=== PATIENT | male | born 1975 | race Caucasian/White ===

== ENCOUNTER 2017-09-26 09:38 | Day surgery (SDC) | payer OTHER ==
[2017-09-24 15:27] VITALS: BMI 22.6
[~2017-09-26 09:38] MED LIST: LACTATED RINGERS 1,000 ML IV SCH; LIDOCAINE 1% 20 ML VIAL (10MG/ML) FOR IV START INTRADERMA PRN
[2017-09-26 10:04] VITALS: RESP 16; TEMP 98.8
[2017-09-26] MEDS ORDERED: PROPOFOL 10 MG/ML 20 ML VIAL IV ONE (11:07)
--- NOTE | 2017-09-26 11:30 | P.PCN ---
Date of Procedure: 09/26/17 Procedure(s) Performed: Procedure: Esophagogastroduodenoscopy and biopsy. Preoperative diagnosis: History of Mendez's esophagus. Postoperative diagnosis: Hiatal hernia and Mendez's esophagus with no obvious esophagitis or ulcers. Preparation and sedation: Was provided by anesthesia. Brief clinical history: The patient is a 42-year-old male with history of acid reflux and prior diagnosis of Mendez's esophagus currently maintained on omeprazole, is scheduled for this evaluation for screening for dysplasia. His last endoscopy was in 2013. The patient has no complaints while on medications and does not have any alarm symptoms. Procedure: With the patient on his left lateral decubitus position and after informed consent and adequate sedation, I passed the Olympus-GIF 160 video upper endoscope through the cricopharyngeus down the esophagus. GE junction was around 36 cm from the incisors and the tubular esophagus continued for another 4 cm or so defining a segment of Mendez's esophagus. There was a sliding hiatal hernia measuring around 2 cm then the endoscope was passed into the stomach which was insufflated with air and inspected in detail including the retroflex view in the cardia. Finally, the endoscope was passed through the pylorus into the duodenum. Pyloric channel, duodenal bulb, post bulbar area and descending duodenum appeared within normal limits. The stomach appeared within normal limits as well. The esophagus did not show any obvious erosions, ulcers or strictures. I obtained biopsies from the Mendez's segment then the endoscope was withdrawn. The patient tolerated the procedure well. Plan: The patient was reassured and I discussed with his mother who was with him today. We will continue current management and plan to repeat an upper endoscopy in 2-3 years. He will follow up with you as planned and I will be happy to see in the office if he has any new issues in the meantime.
[2017-09-26 11:51] VITALS: BP 119/73; PULSE 66
== END 2017-09-26 11:54 | disposition home or self-care (01) ==
LOC: ORWHC2ENDO 09:38
DX: K22.70 Barrett's esophagus without dysplasia (principal); K21.9 Gastro-esophageal reflux disease without esophagitis; K44.9 Diaphragmatic hernia without obstruction or gangrene; J45.909 Unspecified asthma, uncomplicated; Z88.0 Allergy status to penicillin; Z79.899 Other long term (current) drug therapy
CPT/HCPCS: 43239; J2704; 88305

== ENCOUNTER → 2018-06-06 | Outpatient (CLI) | payer BC ==
--- NOTE | 2018-06-06 12:17 | US ---
EXAMINATION TYPE: US abdomen limited DATE OF EXAM: 06/06/2018 COMPARISON: NONE CLINICAL HISTORY: R10.9 ABD PAIN. LUQ pain/tenderness for a month, patient unsure if related to lifti ng weights, describes a rolling pain left of epigastric area EXAM MEASUREMENTS: Spleen: 8.8cm Left Kidney: 9.3 x 4.5 x 5.8cm 1. Spleen: appears wnl 2. Left Kidney: appears wnl *scanned area left of epigastric and peristalsing bowel seen. IMPRESSION: In the area the patient's left upper quadrant tenderness there is no suspicious abnormali ty seen. The left kidney and left spleen are unremarkable.
== END | disposition home or self-care (01) ==
LOC: RADUSWWP 10:42
PROVIDERS: ATTEND Internal Medicine
DX: R10.12 Left upper quadrant pain (principal)
CPT/HCPCS: 76705

== ENCOUNTER 2020-03-31 09:18 | Day surgery (SDC) | payer BC ==
[2020-03-31 09:43] VITALS: TEMP 98.9
[2020-03-31] MEDS ORDERED: LACTATED RINGERS 1,000 ML IV ONE (09:43)
[2020-03-31] MEDS ORDERED: LIDOCAINE 1% (10MG/ML) FOR IV START INTRADERMA ONE (09:43)
[2020-03-31] MEDS ORDERED: PROPOFOL 10 MG/ML 20 ML VIAL IV ONE (10:08)
--- NOTE | 2020-03-31 10:46 | P.PCN ---
Date of Procedure: 03/31/20 Description of Procedure: Brief history: Patient is a pleasant 45-year-old male presenting for outpatient esophagogastroduodenoscopy and colonoscopy for history of Mendez's esophagus and altered bowel function/change in bowel function. Patient is seen in the clinic with a history of Mendez's esophagus and last EGD in 2018. Patient is on omeprazole daily. He had been complaining of altered bowel function with abdominal pain and frequent diarrhea including nighttime symptoms. Procedure performed: Esophagogastroduodenoscopy with biopsy Colonoscopy with biopsy Estimated blood loss: Minimal. Preoperative diagnosis: Mendez's esophagus, change in bowel habits/altered bowel function Anesthesia: [facility] [place] Procedure: After informed consent was obtained from the patient was brought into the endoscopy unit and IV sedation was administered by anesthesia under continuous monitoring. Initially upper endoscopy was done. The Olympus GF 190 video endoscope was inserted into the mouth and esophagus intubated without any difficulty and was gradually advanced into the stomach and duodenum and carefully examined. The bulb and second part of the duodenum appeared normal, with biopsies taken to rule out celiac sprue. The scope was then withdrawn into the stomach adequately insufflated with air and upon careful examination the antrum and body, cardia and fundus appeared normal, except for diffuse punctate erythema in the antrum and body suggestive of mild gastritis of. The scope was then withdrawn into the esophagus. The GE junction was located at 39 cm to the incisors, with a 1 cm hiatal hernia. There was 4 cm [place]-colored mucosa consistent with history of Mendez's esophagus with biopsies of the lower esophageal dysphagia the esophagus otherwise appeared regular with no erythema erosions or ulcerations. Rest of the esophagus appeared normal. Patient tolerated the procedure well. At this time the patient continued to remain sedation. Initial digital rectal examination was normal. Olympus CF 190 video colonoscope was then inserted into the rectum and gradually advanced to the cecum without any difficulty. Careful examination was performed as the scope was gradually being withdrawn. The prep was excellent. The cecum, ascending colon, transverse colon, descending colon, sigmoid colon and rectum appeared normal with random biopsies taken of the right and left colon in the setting of altered bowel function. Normal-appearing terminal ileum with biopsies taken. Retroflexion was performed in the rectum and no lesions were noted, Low-grade internal hemorrhoids. Patient tolerated the procedure well. Impression: 1. Mild gastritis. Mendez's esophagus. Biopsies of the duodenum, antrum and body and lower esophagus. 2. Normal-appearing colon from rectum to cecum with normal-appearing terminal ileum, and random biopsies taken of the right colon, left colon and terminal ileum given altered bowel function. Internal hemorrhoids. Recommendations: Findings of this examination were discussed with the patient. Okay to resume diet. Okay to resume medications. Await pathology from biopsies. Continue current medical management. Follow-up in the GI clinic as scheduled.
[2020-03-31 11:07] VITALS: BP 130/86; PULSE 83; RESP 18
== END 2020-03-31 11:38 | disposition home or self-care (01) ==
LOC: ORWHC2ENDO 09:18
PROVIDERS: ATTEND Internal Medicine
DX: D72.820 Lymphocytosis (symptomatic) (principal); K29.50 Unspecified chronic gastritis without bleeding; K22.70 Barrett's esophagus without dysplasia; R19.4 Change in bowel habit; K44.9 Diaphragmatic hernia without obstruction or gangrene; K64.8 Other hemorrhoids; K21.9 Gastro-esophageal reflux disease without esophagitis; J45.909 Unspecified asthma, uncomplicated; Z79.899 Other long term (current) drug therapy; Z88.0 Allergy status to penicillin; Z91.018 Allergy to other foods
CPT/HCPCS: 45380; 43239; J2704; 88305

== ENCOUNTER → 2020-06-03 | Outpatient (CLI) | payer BC ==
--- NOTE | 2020-06-03 13:27 | US ---
EXAMINATION TYPE: US abdomen complete DATE OF EXAM: 06/03/2020 COMPARISON: 06/06/2018 CLINICAL HISTORY: 45-year-old male R10.9 unspecified Abdominal Pain. Generalized pain. TECHNIQUE: Multiple sonographic images of the abdomen are obtained. FINDINGS: EXAM MEASUREMENTS: Liver Length: 11.6 cm Gallbladder Wall: 0.1 cm CBD: 0.3 cm Spleen: 8.7 cm Right Kidney: 9.8 x 5.1 x 4.3 cm Left Kidney: 9.7 x 4.6 x 6.3 cm Pancreas: wnl Liver: Echogenic lesion, nonvascular in inferior right lobe= 0.8 x 0.9 x 0.9 cm. Gallbladder: wnl Evidence for sonographic Hernandez's sign: neg CBD: wnl Spleen: wnl Kidneys: No hydronephrosis. Upper IVC: wnl Abd Aorta: Normal-caliber abdominal aorta. IMPRESSION: 1. A 9 mm echogenic lesion within the inferior right liver lobe not identified on the patient's 2019 exam. A benign hemangioma. Six-month follow-up ultrasound recommended to ensure stability. 2. No gallstones or biliary ductal dilatation.
== END | disposition home or self-care (01) ==
LOC: RADUSWWP 08:11
PROVIDERS: ATTEND Internal Medicine
DX: D18.03 Hemangioma of intra-abdominal structures (principal); K76.9 Liver disease, unspecified
CPT/HCPCS: 76700

== ENCOUNTER → 2020-08-29 | Outpatient (CLI) | payer BC ==
--- NOTE | 2020-08-29 19:07 | P.STRESS ---
- Stress Test Note Stress Test Results/Findings: Exam Performed: stress echo exercise Exam Date: 08/29/20 Reason for Exam: DYSPNEA Height: 5 ft 3 in Weight: 52.617 kg Protocol: CHARLES Stage: IV Duration of Exercise: 10:30 Resting Heart Rate: 78 Resting Blood Pressure: 105/64 Maximum Achieved Heart Rate: 172 Maximum Achieved Blood Pressure: 161/89 85% PMHR: 150 100% PMHR: 177 METS: Technologist Comment: Stress Test Results/Findings: Normal heart rate and blood pressure response to exercise Patient exercised on a Charles protocol for 10 minutes 30 seconds No ECG evidence of ischemia No arrhythmias Normal LV systolic function at baseline Excellent augmentation of overall LV contractility with exercise, without development any wall motion abnormalities On recovery, LV size and systolic function was normal Impression no ECG or echocardiographic evidence for ischemia
== END | disposition home or self-care (01) ==
LOC: RADNMMAIN 09:10
PROVIDERS: ATTEND Family Medicine
DX: R06.00 Dyspnea, unspecified (principal)
CPT/HCPCS: 93351

== ENCOUNTER → 2020-09-30 | Outpatient (CLI) | payer BC ==
--- NOTE | 2020-10-01 04:23 | MR ---
EXAMINATION TYPE: MR brain wo/w con DATE OF EXAM: 09/30/2020 COMPARISON: None HISTORY: Visual disturbance CONTRAST: Standard multiplanar, multisequence MRI departmental protocol utilizing 5 mL intravenous Gadavist sheyla olinium contrast. Diffusion images show no evidence of an acute infarct. Ventricles have normal size. There is no mass effect nor midline shift. There is no evidence of intracranial hemorrhage. The temple-white matter stru ctures have fairly normal signal pattern. There is no evidence of cerebral edema. Brainstem is intact . Corpus callosum is intact. There is no evidence of orbital mass. There is normal enhancement of the venous sinuses. There is no pathologic enhancement. IMPRESSION: Negative MR scan of the brain.
== END | disposition home or self-care (01) ==
LOC: RADMRIMAIN 20:20
PROVIDERS: ATTEND Family Medicine
DX: H53.9 Unspecified visual disturbance (principal)
CPT/HCPCS: 70553; A9585

== ENCOUNTER → 2020-11-13 | Outpatient (CLI) | payer BC ==
--- NOTE | 2020-11-13 11:12 | MR ---
EXAMINATION TYPE: MR cervical spine wo con DATE OF EXAM: 11/13/2020 COMPARISON: None HISTORY: Numbness in face and arms, headaches x 1 year. TECHNIQUE: Multiplanar, multisequence images of the cervical spine were acquired without contrast. Findings: The craniovertebral vertebral junction relationships and prevertebral soft tissues are normal. The cervical vertebral segments are normal in height and alignment and there is no fracture or sublux ation.. The disc spaces are well-maintained in height there is no significant degenerative disc disease. Ther e are no cervical disc herniations. The cervical cord is normal in size and signal intensity and there is no cervical stenosis. There is no neural foraminal encroachment. The paraspinal soft tissues are unremarkable. IMPRESSION: No significant abnormality seen.
== END | disposition home or self-care (01) ==
LOC: RADMRIMAIN 10:18
PROVIDERS: ATTEND Psychiatry & Neurology Neurology
DX: R20.0 Anesthesia of skin (principal); R51.9 Headache, unspecified
CPT/HCPCS: 72141

== ENCOUNTER → 2021-04-14 | Outpatient (CLI) | payer BC ==
--- NOTE | 2021-04-14 15:51 | XR ---
EXAMINATION TYPE: XR chest 2V DATE OF EXAM: 04/14/2021 COMPARISON: NONE HISTORY: Shortness of breath TECHNIQUE: Frontal and lateral views of the chest are obtained. FINDINGS: There is no focal air space opacity, pleural effusion, or pneumothorax seen. The cardiac silhouette size is within normal limits. The osseous structures are intact. IMPRESSION: No acute cardiopulmonary process.
== END | disposition home or self-care (01) ==
LOC: RADXRMAIN 15:02
PROVIDERS: ATTEND Internal Medicine
DX: R06.02 Shortness of breath (principal)
CPT/HCPCS: 71046

== ENCOUNTER 2022-11-01 18:04 | Emergency (ER) | payer BC ==
[2022-11-01 18:38] VITALS: RESP 18
--- NOTE | 2022-11-01 19:42 | ED ---
General Adult HPI - General Chief complaint: Chest Pain Stated complaint: left chest pain shortness of breath anxiety Time Seen by Provider: 11/01/22 19:32 Source: patient, RN notes reviewed, old records reviewed Mode of arrival: ambulatory - History of Present Illness Initial comments: 47-year-old male presents for evaluation of chest discomfort. Symptoms 7 present for the past several days. Patient denies history of coronary artery disease. He denies vomiting. Denies diaphoresis. He reports mild dyspnea. Pain is a pressure-like sensation in the left anterior chest. Patient does admit to anxiety as his mother had recent heart attack. - Related Data Home Medications Medication Instructions Recorded Confirmed Albuterol Sulfate [Proair Hfa] 1 - 2 puff INHALATION Q6HR PRN 09/24/17 03/31/20 Multivitamins, Thera [Multivitamin 1 tab PO DAILY 09/24/17 03/31/20 (formulary)] Omeprazole 20 mg PO QAM 09/25/17 03/31/20 Famotidine 40 mg PO DAILY 03/31/20 03/31/20 Hyoscyamine Sulfate [Hyoscyamine 0.125 mg SUBLINGUAL Q6HR PRN 03/31/20 03/31/20 Sulfate SL] ondansetron HCL [Zofran] 8 mg PO Q6HR PRN 03/31/20 03/31/20 Allergies Allergy/AdvReac Type Severity Reaction Status Date / Time amoxicillin Allergy Rash/Hives Verified 11/01/22 18:37 tree nut Allergy Unknown Verified 11/01/22 18:37 Review of Systems ROS Statement: Those systems with pertinent positive or pertinent negative responses have been documented in the HPI. ROS Other: All systems not noted in ROS Statement are negative. Past Medical History Past Medical History: Asthma, GERD/Reflux Additional Past Medical History / Comment(s): Mendez's esophagus. migraines History of Any Multi-Drug Resistant Organisms: None Reported Past Surgical History: Hernia Repair Additional Past Surgical History / Comment(s): EGDs Past Anesthesia/Blood Transfusion Reactions: No Reported Reaction Additional Past Anesthesia/Blood Transfusion Reaction / Comment(s): no hx blood transfusions Past Psychological History: No Psychological Hx Reported Smoking Status: Never smoker Past Alcohol Use History: None Reported Past Drug Use History: None Reported - Past Family History Mother Family Medical History: No Reported History General Exam Limitations: no limitations General appearance: alert, anxious Head exam: Present: atraumatic, normocephalic Eye exam: Present: normal appearance. Absent: PERRL, EOMI ENT exam: Present: normal exam Neck exam: Present: normal inspection. Absent: tenderness, meningismus Respiratory exam: Present: normal lung sounds bilaterally. Absent: respiratory distress, wheezes Cardiovascular Exam: Present: regular rate, normal rhythm GI/Abdominal exam: Present: soft. Absent: distended, tenderness, guarding Extremities exam: Present: normal inspection, normal capillary refill. Absent: pedal edema Neurological exam: Present: alert, oriented X3, CN II-XII intact. Absent: motor sensory deficit Psychiatric exam: Present: anxious Skin exam: Present: warm, dry Course Vital Signs 11/01/22 11/01/22 11/01/22 18:31 20:00 20:30 Temperature 98 F Pulse Rate 68 75 69 Respiratory 18 18 18 Rate Blood Pressure 139/85 139/89 135/82 O2 Sat by Pulse 100 98 98 Oximetry 11/01/22 21:00 Temperature 98.2 F Pulse Rate 72 Respiratory 18 Rate Blood Pressure 122/79 O2 Sat by Pulse 98 Oximetry Medical Decision Making - Medical Decision Making Was pt. sent in by a medical professional or institution (, PA, FORWARDER OPERATOR, urgent care, hospital, or long term...) When possible be specific @ -No Did you speak to anyone other than the patient for history (EMS, parent, family, police, friend...)? What history was obtained from this source @ -No Did you review nursing and triage notes (agree or disagree)? Why? @ -I reviewed and agree with nursing and triage notes Were old charts reviewed (outside hosp., previous admission, EMS record, old EKG, old radiological studies, urgent care reports/EKG's, long term records)? Report findings @ -No old charts were reviewed Differential Diagnosis (chest pain, altered mental status, abdominal pain women, abdominal pain men, vaginal bleeding, weakness, fever, dyspnea, syncope, headache, dizziness, GI bleed, back pain, seizure, CVA, palpatations, mental health, musculoskeletal)? @ -Differential Chest Pain: Stable Angina, Unstable Angina, STEMI, NSTEMI Aortic Dissection, Pneumothorax, Musculoskeletal, Esophageal Spasm GERD, Cholecystitis, Pancreatitis, Zoster, this is not meant to be an all-inclusive list. EKG interpreted by me (3pts min.). @EKG: Sinus rhythm rate of 90 possible flutter wave, MO interval 132, QRS duration 93, QTC [address] segment elevation. X-rays interpreted by me (1pt min.). @ -Chest x-ray negative for acute cardiopulmonary disease CT interpreted by me (1pt min.). @ -None done U/S interpreted by me (1pt. min.). @ -None done What testing was considered but not performed or refused? (CT, X-rays, U/S, labs)? Why? @ -None What meds were considered but not given or refused? Why? @ -None Did you discuss the management of the patient with other professionals (professionals i.e. , PA, FORWARDER OPERATOR, lab, RT, psych nurse, social insurance specialist, divorce lawyer, teacher, financial aid officer, case consultant)? Give summary @ -No Was smoking cessation discussed for >3mins.? @ -No Was critical care preformed (if so, how long)? @ -No Were there social determinants of health that impacted care today? How? (Homelessness, low income, unemployed, alcoholism, drug addiction, transportation, low edu. Level, literacy, decrease access to med. care, [place] [facility], rehab)? @ -No Was there de-escalation of care discussed even if they declined (Discuss DNR or withdrawal of care, Hospice)? DNR status @ -No What co-morbidities impacted this encounter? (DM, HTN, Smoking, COPD, CAD, Cancer, CVA, ARF, Chemo, Hep., AIDS, mental health diagnosis, sleep apnea, morbid obesity)? @ -[Asthma Was patient admitted / discharged? Hospital course, mention meds given and route, prescriptions, significant lab abnormalities, going to OR and other pertinent info. @ -47-year-old male presenting with chest pain and anxiety. EKG sinus rhythm without ST segment elevation. Chest x-ray is clear. He has normal CBC, normal CMP, negative d-dimer, negative troponin. His symptoms have been present for the past several days. The do feel this is predominantly anxiety. The patient is given strict return parameters and will follow with his primary care physician. Undiagnosed new problem with uncertain prognosis? @ -No Drug Therapy requiring intensive monitoring for toxicity (Heparin, Nitro, Insulin, Cardizem)? @ -No Were any procedures done? @ -No Diagnosis/symptom? @ Chest pain, anxiety Acute, or Chronic, or Acute on Chronic? @ Acute Uncomplicated (without systemic symptoms) or Complicated (systemic symptoms)? @ -default Side effects of treatment? @ -No Exacerbation, Progression, or Severe Exacerbation? @ -No Poses a threat to life or bodily function? How? (Chest pain, [place], [place], pneumonia, PE, COPD, DKA, ARF, appy, cholecystitis, CVA, Diverticulitis, Homicidal, Suicidal, threat to staff... and all critical care pts) @ -[Low risk at this time - Lab Data Result diagrams: 11/01/22 19:42 11/01/22 19:42 Lab Results 11/01/22 11/01/22 11/01/22 Range/Units 19:42 19:42 19:42 WBC 10.7 H (3.8-10.6) k/uL RBC 5.55 (4.30-5.90) m/uL Hgb 17.7 H (13.0-17.5) gm/dL Hct 52.1 (39.0-53.0) % MCV 93.9 (80.0-100.0) fL MCH 31.8 (25.0-35.0) pg MCHC 33.9 (31.0-37.0) g/dL RDW 11.9 (11.5-15.5) % Plt Count 306 (150-450) k/uL MPV 7.3 Neutrophils % 74 % Lymphocytes % 18 % Monocytes % 5 % Eosinophils % 1 % Basophils % 0 % Neutrophils # 7.9 H (1.3-7.7) k/uL Lymphocytes # 1.9 (1.0-4.8) k/uL Monocytes # 0.6 (0-1.0) k/uL Eosinophils # 0.1 (0-0.7) k/uL Basophils # 0.0 (0-0.2) k/uL PT 11.2 (9.0-12.0) sec INR 1.1 (<1.2) APTT 29.3 (22.0-30.0) sec D-Dimer <0.17 (<0.60) mg/L FEU Sodium 137 (137-145) mmol/L Potassium 4.2 (3.5-5.1) mmol/L Chloride 100 (98-107) mmol/L Carbon Dioxide 27 (22-30) mmol/L Anion Gap 10 mmol/L BUN 10 (9-20) mg/dL Creatinine 0.80 (0.66-1.25) mg/dL Est GFR (CKD-EPI)AfAm >90 (>60 ml/min/1.73 sqM) Est GFR (CKD-EPI)NonAf >90 (>60 ml/min/1.73 sqM) Glucose 100 H (74-99) mg/dL Calcium 9.8 (8.4-10.2) mg/dL Magnesium 2.1 (1.6-2.3) mg/dL Total Bilirubin 0.9 (0.2-1.3) mg/dL AST 31 (17-59) U/L ALT 27 (4-49) U/L Alkaline Phosphatase 64 (38-126) U/L Troponin I (0.000-0.034) ng/mL Total Protein 8.0 (6.3-8.2) g/dL Albumin 4.7 (3.5-5.0) g/dL 11/01/22 Range/Units 19:42 WBC (3.8-10.6) k/uL RBC (4.30-5.90) m/uL Hgb (13.0-17.5) gm/dL Hct (39.0-53.0) % MCV (80.0-100.0) fL MCH (25.0-35.0) pg MCHC (31.0-37.0) g/dL RDW (11.5-15.5) % Plt Count (150-450) k/uL MPV Neutrophils % % Lymphocytes % % Monocytes % % Eosinophils % % Basophils % % Neutrophils # (1.3-7.7) k/uL Lymphocytes # (1.0-4.8) k/uL Monocytes # (0-1.0) k/uL Eosinophils # (0-0.7) k/uL Basophils # (0-0.2) k/uL PT (9.0-12.0) sec INR (<1.2) APTT (22.0-30.0) sec D-Dimer (<0.60) mg/L FEU Sodium (137-145) mmol/L Potassium (3.5-5.1) mmol/L Chloride (98-107) mmol/L Carbon Dioxide (22-30) mmol/L Anion Gap mmol/L BUN (9-20) mg/dL Creatinine (0.66-1.25) mg/dL Est GFR (CKD-EPI)AfAm (>60 ml/min/1.73 sqM) Est GFR (CKD-EPI)NonAf (>60 ml/min/1.73 sqM) Glucose (74-99) mg/dL Calcium (8.4-10.2) mg/dL Magnesium (1.6-2.3) mg/dL Total Bilirubin (0.2-1.3) mg/dL AST (17-59) U/L ALT (4-49) U/L Alkaline Phosphatase (38-126) U/L Troponin I <0.012 (0.000-0.034) ng/mL Total Protein (6.3-8.2) g/dL Albumin (3.5-5.0) g/dL Disposition Clinical Impression: Chest pain Disposition: HOME SELF-CARE Condition: Fair Instructions (If sedation given, give patient instructions): Chest Pain (ED) Is patient prescribed a controlled substance at d/c from ED?: No Referrals: Quinton Vale MD [Primary Care Provider] - 1-2 days Time of Disposition: 21:14
[2022-11-01 19:54] LABS: Basophils % (A) 0 %; Eosinophils # (A) 0.1 k/uL (0-0.7); Eosinophils % (A) 1 %; HCT 52.1 % (39.0-53.0); HGB 17.7 gm/dL (13.0-17.5); Lymphocytes # (A) 1.9 k/uL (1.0-4.8); Lymphocytes % (A) 18 %; MCH 31.8 pg (25.0-35.0); MCHC 33.9 g/dL (31.0-37.0); MCV 93.9 fL (80.0-100.0); Mean Platelet Volume 7.3; Monocytes # (A) 0.6 k/uL (0-1.0); Monocytes % (A) 5 %; Neutrophils # (A) 7.9 k/uL (1.3-7.7); Neutrophils % (A) 74 %; Platelet Count 306 k/uL (150-450); RBC 5.55 m/uL (4.30-5.90); RDW 11.9 % (11.5-15.5); WBC 10.7 k/uL (3.8-10.6)
[2022-11-01 20:19] LABS: INR 1.1 (<1.2); Partial Thromboplastin Time 29.3 sec (22.0-30.0); Prothrombin Time 11.2 sec (9.0-12.0)
[2022-11-01 20:20] LABS: ALT 27 U/L (4-49); AST 31 U/L (17-59); African American GFR (CKD) >90 (>60 ml/min/1.73 sqM); Albumin 4.7 g/dL (3.5-5.0); Alkaline Phosphatase 64 U/L (38-126); Anion Gap 10 mmol/L; Blood Urea Nitrogen 10 mg/dL (9-20); Calcium 9.8 mg/dL (8.4-10.2); Carbon Dioxide 27 mmol/L (22-30); Chloride 100 mmol/L (98-107); Glucose 100 mg/dL (74-99); Magnesium 2.1 mg/dL (1.6-2.3); Non-African American GFR(CKD) >90 (>60 ml/min/1.73 sqM); Potassium 4.2 mmol/L (3.5-5.1); Sodium 137 mmol/L (137-145); Total Bilirubin 0.9 mg/dL (0.2-1.3)
--- NOTE | 2022-11-01 20:21 | XR ---
EXAMINATION TYPE: XR chest 2V DATE OF EXAM: 11/01/2022 8:02 PM CLINICAL INDICATION:Male, 47 years old with history of Chest Pain; COMPARISON: Chest radiographs from TECHNIQUE: XR chest 2V Frontal and lateral views of the chest. FINDINGS: Lungs/Pleura: There is no evidence of pleural effusion, focal consolidation, or pneumothorax. Pulmonary vascularity: Unremarkable. Heart/mediastinum: Cardiomediastinal silhouette is unremarkable. Musculoskeletal: No acute osseous pathology. IMPRESSION: No acute cardiopulmonary disease/process.
[2022-11-01 21:38] VITALS: BP 122/79; PULSE 72; TEMP 98.2
== END 2022-11-01 22:01 | disposition home or self-care (01) ==
LOC: EC 18:04
DX: R07.89 Other chest pain (principal); F41.9 Anxiety disorder, unspecified; J45.909 Unspecified asthma, uncomplicated; K21.9 Gastro-esophageal reflux disease without esophagitis; Z79.899 Other long term (current) drug therapy; Z88.0 Allergy status to penicillin; Z91.018 Allergy to other foods
CPT/HCPCS: 36415; 71046; 80053; 83735; 84484; 85025; 85379; 85610; 85730; 93005; 99285